=== PATIENT | male | born 2000 | race African-American/Black ===

== ENCOUNTER 2018-09-24 14:47 | Emergency (ER) | payer MEDICAID ==
[~2018-09-24] VITALS: Ht 175.3 cm; Wt 72.6 kg
[2018-09-24 15:48] VITALS: BP 135/84
== END 2018-09-24 16:21 | disposition home or self-care (01) ==
LOC: ER 14:47
DX: G44.209 Tension-type headache, unspecified, not intractable (principal); F17.210 Nicotine dependence, cigarettes, uncomplicated; F32.9 Major depressive disorder, single episode, unspecified; F41.9 Anxiety disorder, unspecified

== ENCOUNTER 2019-11-23 00:15 | Emergency (ER) | payer MEDICAID ==
[~2019-11-23] VITALS: Ht 172.7 cm; Wt 72.6 kg
[2019-11-23 02:23] LABS: Basophils # (auto) 0.1 uL; Basophils % (auto) 1.1 % (0.0-2.0); Eosinophils # (auto) 0 uL; Eosinophils % (auto) 0.1 % (0.0-7.0); Hemoglobin 13.3 g/dL (13.5-17.5); Lymphocytes # (auto) 1.4 uL; Lymphocytes % (auto) 12.7 % (10.0-50.0); Mean Corpuscular Hemoglobin 31.1 pg (28.0-32.0); Mean Corpuscular Hgb Conc. 33.3 g/dL (32.0-36.0); Mean Corpuscular Volume 93.4 fL (80.0-100.0); Monocytes # (auto) 0.8 uL; Monocytes % (auto) 7.3 % (0.0-12.0); Neutrophils # (auto) 8.9 uL; Neutrophils % (auto) 78.8 % (37.0-80.0); Platelet Count (auto) 235 10^3/uL (140-450); Red Blood Cells 4.28 10^6/uL (4.5-5.90); Red Cell Distribution Width 12.9 % (11.8-14.3); White Blood Cell 11.3 10^3/uL (4.4-10.8)
[2019-11-23 02:30] LABS: Urine Amorphous Crystal FEW /hpf (None Seen); Urine Bacteria FEW /hpf (None Seen); Urine Blood TRACE /uL (Negative); Urine Mucus FEW (None Seen); Urine Specific Gravity 1.025 (1.001-1.035); Urine WBC 6 /hpf (0 - 3)
[2019-11-23 02:52] LABS: BUN/Creatinine Ratio 13.5; Calcium 8.8 mg/dL (8.5-10.1); Potassium 3.4 mmol/L (3.5-5.1)
[2019-11-23 02:54] LABS: Salicylate < 1.7 mg/dL (2.8-20.0)
[2019-11-23 02:55] LABS: Acetaminophen < 2.0 ug/mL (10-30); Bilirubin, Total 1.1 mg/dL (0.2-1.0); Total Protein 7.7 g/dL (6.4-8.2)
[2019-11-23 02:59] LABS: Alcohol, Urine < 3.0 mg/dL (0-5); Amphetamine Screen, Urine NEGATIVE (NEGATIVE); Benzodiazephine Screen, Urine NEGATIVE (NEGATIVE); Cannabinoid Screen, Urine POSITIVE (NEGATIVE); Cocaine Screen, Urine NEGATIVE (NEGATIVE); Opiate Scree,Urine NEGATIVE (NEGATIVE); Phencyclidine Screen, Urine NEGATIVE (NEGATIVE)
[2019-11-23 03:06] LABS: Barbiturate Scree,Urine NEGATIVE (NEGATIVE)
[2019-11-23 07:37] VITALS: BP 135/80
== END 2019-11-23 10:57 | disposition home or self-care (01) ==
LOC: EDBD 00:15 → ER 00:21
DX: R45.851 Suicidal ideations (principal); F41.9 Anxiety disorder, unspecified; F32.9 Major depressive disorder, single episode, unspecified; F20.9 Schizophrenia, unspecified; F17.210 Nicotine dependence, cigarettes, uncomplicated
CPT/HCPCS: 36415; 80053; 80307; 80329; 81001; 85025